=== PATIENT | female | born 1935 | race Caucasian/White ===

== ENCOUNTER 2021-07-09 16:05 | Inpatient (IN) | payer MEDICARE, OTHER ==
[2021-07-09] MEDS ORDERED: Lidocaine 1% 10 ML MDV INJECT ONE (17:04)
[2021-07-09] MEDS ORDERED: Diltiazem 50 MG/10 ML SDV IVPUSH ONE (18:44)
[2021-07-09] MEDS ORDERED: Diltiazem 100 MG in Sodium Chloride 0.9% 100 ML IV SCH (18:45)
[2021-07-09] MEDS ORDERED: Sodium Chloride 0.9% 10 ML Syringe FLUSH PRN (18:48)
[2021-07-09] MEDS ORDERED: Sodium Chloride 0.9% 1,000 ML IV SCH ×2 (19:00→22:00)
[2021-07-09] MEDS ORDERED: Acetaminophen 325 MG Tab PO PRN (21:24)
[2021-07-10] MEDS: Diltiazem IR 30 MG Tab PO SCH ×2 (00:04→06:03)
[2021-07-10] MEDS: Enoxaparin 40 MG/0.4 ML Syringe SUBCUT SCH (08:41)
[2021-07-10] MEDS: Diltiazem 180 MG Cap.CD PO SCH (11:36)
[2021-07-10] MEDS ORDERED: Potassium Chloride 20 MEQ Tab.ER PO ONE (11:50)
[2021-07-11] MEDS: Enoxaparin 40 MG/0.4 ML Syringe SUBCUT SCH (09:04)
[2021-07-11] MEDS: Diltiazem 180 MG Cap.CD PO SCH (09:04)
== END 2021-07-11 13:58 | disposition home or self-care (01) | DRG 310 ==
LOC: JD.ED 16:05 → JD.ICU 20:23 → UNDOADMIN 20:23
PROVIDERS: ADMIT Family Medicine; ATTEND Family Medicine
DX: I48.0 Paroxysmal atrial fibrillation (principal); I47.1 Supraventricular tachycardia; S00.03XA Contusion of scalp, initial encounter; W07.XXXA Fall from chair, initial encounter; I10 Essential (primary) hypertension; D72.829 Elevated white blood cell count, unspecified; Z20.822 Contact with and (suspected) exposure to COVID-19; H54.7 Unspecified visual loss; S01.01XA Laceration without foreign body of scalp, initial encounter; W19.XXXA Unspecified fall, initial encounter; Z88.8 Allergy status to other drugs, medicaments and biological substances; Z79.899 Other long term (current) drug therapy; Z98.49 Cataract extraction status, unspecified eye; Z90.710 Acquired absence of both cervix and uterus
CPT/HCPCS: 36415; 70450; 80053; 83735; 84443; 84484; 85007; 85027; 85610; 85730; 93005; J3490 ×2; J7030; 12002; 12014; 80048; 85025; 93010; 96365; 99285; 99285-25; A9270-GY; J1650; U0002